=== PATIENT | female | born 1980 | race Caucasian/White ===

== ENCOUNTER 2017-06-17 00:10 | Emergency (ER) | payer OTHER ==
[~2017-06-17] VITALS: Ht 160 cm; Wt 95.3 kg
[2017-06-17 01:32] LABS: BASOPHILS # (AUTO) 0.1 K/uL (0.0-8.0); BASOPHILS % (AUTO) 0.9 % (0.0-2.0); EOSINOPHILS # (AUTO) 0.8 K/uL (0.0-0.7); EOSINOPHILS % (AUTO) 7.7 % (0.0-7.0); HEMATOCRIT 39.9 % (31.2-41.9); HEMOGLOBIN 13.9 g/dL (10.9-14.3); LYMPHOCYTES # (AUTO) 3.6 K/uL (20.0-40.0); LYMPHOCYTES % (AUTO) 33.9 % (20.5-51.5); MEAN CORPUSCULAR HGB CONC 35 g/dL (32.3-35.6); MEAN CORPUSCULAR VOLUME 86.1 fL (75.5-95.3); MONOCYTES # (AUTO) 0.8 K/uL (2.0-10.0); MONOCYTES % (AUTO) 8.1 % (0.0-11.0); NEUTROPHILS # (AUTO) 5.2 K/uL (1.8-8.9); NEUTROPHILS % (AUTO) 49.4 % (38.5-71.5); PLATELET COUNT (AUTO) 289 K/uL (179-408); RED BLOOD CELL COUNT(AUTO) 4.63 MIL/uL (3.63-4.92); WHITE BLOOD COUNT (AUTO) 10.5 K/uL (3.8-11.8)
[2017-06-17 01:44] LABS: CREATININE 0.9 mg/dL (0.6-1.3); POTASSIUM 3.5 mmol/L (3.5-5.1)
[2017-06-17 01:56] LABS: BILIRUBIN,DIRECT 0.1 mg/dL (0.0-0.2); BILIRUBIN,TOTAL 0.5 mg/dL (0.2-1.0); TOTAL PROTEIN, SERUM 7.8 g/dL (6.4-8.2)
--- NOTE | 2017-06-17 02:40 | NUR ---
Patient discharged to home in stable conditon. Written and verbal after care instructions given. Patient verbalizes understanding of instructions.
[2017-06-17 02:41] VITALS: BP 118/76
== END 2017-06-17 02:41 | disposition home or self-care (01) ==
LOC: ER 00:21
DX: J45.909 Unspecified asthma, uncomplicated (principal); F17.200 Nicotine dependence, unspecified, uncomplicated
CPT/HCPCS: 36415; 70030-TC; 71010; 84703; 85025; 93005; A4663; J3590; J7512

== ENCOUNTER 2017-07-28 00:42 | Emergency (ER) | payer OTHER ==
[~2017-07-28] VITALS: Ht 160 cm; Wt 93.0 kg
[2017-07-28] MEDS ORDERED: VENTOLIN HFA 90 MCG INHALER (00:53)
--- NOTE | 2017-07-28 01:00 | NUR ---
PATIENT C/O SOB X2 DAYS WITH COUGH. HERE FOR SYMPTOMS NOT RESOLVING
[2017-07-28] MEDS: ALBUTEROL SULFATE 2.5 MG/3 ML NEBU NEB ONE (01:26)
[2017-07-28] MEDS: ACETAMINOPHEN ES 500 MG TABLET PO ONE (01:40)
[2017-07-28] MEDS: BENZONATATE 100 MG CAPSULE PO ONE (01:41)
[2017-07-28] MEDS ORDERED: ALBUTEROL SULFATE 2.5 MG/ 0.5 ML NEBU ONE (01:51)
[2017-07-28] MEDS ORDERED: BENZONATATE 100 MG CAPSULE ONE (01:53)
[2017-07-28] MEDS ORDERED: ACETAMINOPHEN ES 500 MG TABLET ONE (01:53)
--- NOTE | 2017-07-28 02:30 | NUR ---
PATIENT STATES AFTER BREATHING TX "I FEEL BETTER NOW. I JUST WANT TO GET A STERIOD AND GO HOME."
[2017-07-28] MEDS: predniSONE 50 MG TABLET PO ONE (03:11)
--- NOTE | 2017-07-28 03:21 | NUR ---
Patient does not wish to proceed with medical care recommended by Dr. AVENDANO ). Patient given information related to possible complications, up to and including , which could occur as a result of leaving the hospital at this time. Patient verbalizes understanding of risks involved due to leaving against medical advice. Patient has signed AMA form.
[2017-07-28] MEDS ORDERED: predniSONE 50 MG TABLET ONE (03:23)
[2017-07-28 03:24] VITALS: BP 125/75
== END 2017-07-28 03:25 | disposition left against medical advice (07) ==
LOC: ER 00:46
DX: R05 Cough (principal); R06.02 Shortness of breath; R51 Headache; R07.81 Pleurodynia; F17.200 Nicotine dependence, unspecified, uncomplicated; B19.20 Unspecified viral hepatitis C without hepatic coma
CPT/HCPCS: 71010; 94644; 99285; A4663; J7512